=== PATIENT | male | born 1930 | race Caucasian/White ===

== ENCOUNTER → 2020-03-31 | Outpatient (CLI) | payer OTHER, MEDICARE ==
[~2020-03-31] MED LIST: AMARYL2 MG PO; ASPIRIN EC81 M1 PO; CENTRUM SILVER1 EAC4 PO; CLARITIN10 MG PO; DUONEB 2.5-0.5 M3 ML INH; FISH OIL 1,2001 EAC4 PO; FLOMAX0.4 MG PO; FLONASE 0.05%50 MCG NASAL; LOSARTAN POTASS50 MG PO; PLAVIX 75 MG TA75 M1 PO; PRILOSEC 20 MG20 MG PO; PROAIR HFA8.5 GM; PROSCAR 5MG TABL5 MG PO; SIMVASTATIN40 MG PO; SYMBICORT160 MCG/4.; VITAMIN D1000 UNI1; VITAMIN E100 UNI1 PO
== END ==
LOC: SJCVC 09:39
PROVIDERS: ATTEND Internal Medicine
DX: I25.10 Atherosclerotic heart disease of native coronary artery without angina pectoris (principal); I10 Essential (primary) hypertension; E78.5 Hyperlipidemia, unspecified; J67.0 Farmer's lung; I49.3 Ventricular premature depolarization; D50.9 Iron deficiency anemia, unspecified; I25.2 Old myocardial infarction; Z95.1 Presence of aortocoronary bypass graft; Z79.899 Other long term (current) drug therapy; Z87.891 Personal history of nicotine dependence

== ENCOUNTER → 2021-03-03 | Outpatient (CLI) | payer OTHER, MEDICARE | LOC: SJCVC 14:59 | PROVIDERS: ATTEND Internal Medicine | DX: R94.31 Abnormal electrocardiogram [ECG] [EKG] (principal); I49.9 Cardiac arrhythmia, unspecified; I25.10 Atherosclerotic heart disease of native coronary artery without angina pectoris; E78.5 Hyperlipidemia, unspecified; J67.0 Farmer's lung; I49.3 Ventricular premature depolarization; I12.9 Hypertensive chronic kidney disease with stage 1 through stage 4 chronic kidney disease, or unspecified chronic kidney disease; N18.9 Chronic kidney disease, unspecified; D50.9 Iron deficiency anemia, unspecified; I48.0 Paroxysmal atrial fibrillation; E78.00 Pure hypercholesterolemia, unspecified; Z95.1 Presence of aortocoronary bypass graft; Z95.5 Presence of coronary angioplasty implant and graft; Z88.2 Allergy status to sulfonamides; Z88.8 Allergy status to other drugs, medicaments and biological substances; Z79.82 Long term (current) use of aspirin; Z79.899 Other long term (current) drug therapy; Z87.891 Personal history of nicotine dependence ==